=== PATIENT | male | born 1980 | race Caucasian/White ===

== ENCOUNTER 2019-08-27 15:35 | Emergency (ER) | payer MEDICAID ==
[~2019-08-27] VITALS: Ht 180.3 cm; Wt 95.3 kg
[2019-08-27] MEDS ORDERED: methylPREDNISolone SOD SUCC 125 MG/2 ML VL IV ONE (17:15)
[2019-08-27 18:51] LABS: Anion Gap 7 (5-15); Blood Urea Nitrogen 13 mg/dL (7-18); Calcium 9.6 mg/dL (8.5-10.1); Carbon Dioxide 24 mmol/L (21-32); Chloride 105 mmol/L (98-107); Glucose 100 mg/dL (74-106); Potassium 3.5 mmol/L (3.5-5.1); Sodium 136 mmol/L (136-145)
[2019-08-27 19:01] LABS: Alanine Aminotransferase 153 U/L (16-61); Alkaline Phosphatase 180 U/L (45-117); Aspartate Aminotransferase 75 U/L (15-37); Bilirubin, Total 1.2 mg/dL (0.2-1.0); GFR African American 53 mL/min; GFR Non-African American 43 mL/min; Total Protein 8.1 g/dL (6.4-8.2)
[2019-08-27 19:03] LABS: Basophils # (auto) 0.1 uL; Basophils % (auto) 0.7 % (0.0-2.0); Eosinophils # (auto) 0.2 uL; Eosinophils % (auto) 2.2 % (0.0-7.0); Hemoglobin 16.4 g/dL (13.5-17.5); Lymphocytes % (auto) 11.3 % (10.0-50.0); Mean Corpuscular Hemoglobin 35.9 pg (28.0-32.0); Mean Corpuscular Hgb Conc. 34.9 g/dL (32.0-36.0); Mean Corpuscular Volume 102.7 fL (80.0-100.0); Monocytes # (auto) 0.8 uL; Monocytes % (auto) 8.3 % (0.0-12.0); Neutrophils # (auto) 7.2 uL; Neutrophils % (auto) 77.5 % (37.0-80.0); Nucleated Red Blood Cells % 0.1 %; Platelet Count (auto) 158 10^3/uL (140-450); Red Blood Cells 4.58 10^6/uL (4.5-5.90); Red Cell Distribution Width 15.1 % (11.8-14.3); White Blood Cell 9.3 10^3/uL (4.4-10.8)
[2019-08-27] MEDS ORDERED: methylPREDNISolone SOD SUCC 125 MG/2 ML VL IM ONE (20:15)
[2019-08-27 20:18] VITALS: BP 110/78
== END 2019-08-27 20:27 | disposition home or self-care (01) ==
LOC: ER 15:36
DX: J20.9 Acute bronchitis, unspecified (principal); R42 Dizziness and giddiness
CPT/HCPCS: 36415; 71046; 80053; 83605; 83880; 84484; 85025; 87040; 93005; 96372; 99285; J2930